=== PATIENT | female | born 1950 | race Caucasian/White ===

== ENCOUNTER 2023-06-09 09:55 | Inpatient (IN) | payer MEDICARE ==
--- NOTE | 2023-06-09 10:09 | ERPHSYRPT ---
- History of Present Illness Time Seen by Provider: 06/09/23 10:09 Source: patient, family Exam Limitations: clinical condition Physician History: This is a 73-year-old white female patient who lives with her son and her [id number] brought to the emergency department by her [id number] who also provided independent, additional medical history. In the last month the patient has had increased confusion. In the last 2 days her symptoms are even worse with difficulty answering questions and following commands. She is also noted to have urinary incontinence at home. Patient's daughter states that there is been no shortness of breath and no cough. Today, the patient is awake and alert but confused. She knows who she is but she does not know the time of day or her location. Patient denies pain. Patient continues to smoke cigarettes. Timing/Duration: worse ( the last month), other (Worsening symptoms over) Character of Deficits: other (Increased confusion) Baseline/Normal Cognition: alert but confused Current Cognition: alert but confused Baseline Gait: unable to walk (Transportation by wheelchair) Associated Symptoms: confusion Allergies/Adverse Reactions: No Known Drug Allergies Allergy (Verified 06/09/23 10:28) Home Medications: Alendronate Sodium 70 mg [Fosamax 70 MG] 1 tab PO WEEKLY 06/09/23 [History] Amlodipine Besylate 5 mg [Norvasc 5 mg] 10 mg PO DAILY 06/09/23 [History] Aspirin EC 81 mg [Ecotrin 81 mg] 1 tab PO DAILY 06/09/23 [History] Calcium Carbonate [Tums] 500 mg PO BID 06/09/23 [History] Celecoxib 100 mg [celeBREX 100 MG] 200 mg PO BID 06/09/23 [History] Cetirizine HCl [Zyrtec] 1 tab PO DAILY 06/09/23 [History] Cholecalciferol (Vitamin D3) [Vitamin D3] 1 cap PO DAILY 06/09/23 [History] Cyanocobalamin (Vitamin B-12) [Vitamin B12] 1 tab PO WEEKLY 06/09/23 [History] Enalapril Maleate 10 mg [Vasotec 10 MG] 20 mg PO BID 06/09/23 [History] Ferrous Sulfate 1 tab PO DAILY 06/09/23 [History] Melatonin 1 tab PO HS 06/09/23 [History] Multivit-Min/Iron/Folic/Lutein [Centrum Silver Women Tablet] 1 tab PO DAILY 06/09/23 [History] Thiamine HCl 100 mg [Vitamin B-1 100 mg] 1 tab PO DAILY 06/09/23 [History] Travel Risk - International Travel Have you traveled outside of the country in past 3 weeks: No - Coronavirus Screening Are you exhibiting any of the following symptoms?: No Close contact with a COVID-19 positive Pt in past 14-21 Days: No - Review of Systems Constitutional: Weakness Eyes: No Symptoms Ears, Nose, & Throat: No Symptoms Respiratory: No Symptoms Cardiac: No Symptoms Abdominal/Gastrointestinal: No Symptoms Genitourinary Symptoms: Incontinence Musculoskeletal: No Symptoms Skin: No Symptoms Neurological: Other (Increased confusion) Psychological: No Symptoms Endocrine: No Symptoms Hematologic/Lymphatic: No Symptoms Immunological/Allergic: No Symptoms All Other Systems: Reviewed and Negative - Past Medical History Neurological History: No Pertinent History Cardiac History: Hypertension Respiratory History: No Pertinent History Endocrine Medical History: No Pertinent History Musculoskeletal History: Fractures - Nursing Vital Signs Nursing Vital Signs: Initial Vital Signs Pulse Rate 60 06/09/23 10:28 Respiratory Rate 18 06/09/23 10:28 Blood Pressure 146/69 06/09/23 10:28 O2 Sat by Pulse Oximetry 96 06/09/23 10:28 Pain Scale Pain Intensity 0 - [place] Coma Scale Best Eye Response (Lg): (4) open spontaneously Best Verbal Response (Lg): (4) confused conversation Best Motor Response ([place]): (5) localizes to pain Lg Total: 13 - Physical Exam General Appearance: no apparent distress, alert, thin Eye Exam: bilateral eye: normal inspection, PERRL, EOMI Ears, Nose, Throat Exam: dry mucous membranes Neck Exam: normal inspection, non-tender, supple, full range of motion Respiratory: normal breath sounds, lungs clear, No chest tenderness, No respiratory distress Cardiovascular: regular rate/rhythm, normal heart sounds, normal peripheral pulses Gastrointestinal: soft, normal bowel sounds, No tenderness Pelvic Exam: not done Rectal Exam: not done Back Exam: normal inspection, normal range of motion, No CVA tenderness, No vertebral tenderness Extremity Exam: normal inspection, normal range of motion, pelvis stable Mental Status: alert, disoriented to place, disoriented to time gauge controller Exam: normal hearing, normal speech, PERRL, tongue midline Skin Exam: normal color, warm, dry SpO2 Interpretation: normal O2 Delivery: Room Air - Course Nursing assessment & vital signs reviewed: Yes Ordered Tests: Active Orders 24 hr Category Date Time Status IV Insertion STAT Care 06/09/23 10:40 Active IV Insertion-2nd Peripheral STAT Care 06/09/23 12:09 Active Telemetry q4h Care 06/09/23 11:55 Active HEAD WITHOUT CONTRAST [CT] Stat Exams 06/09/23 10:42 Completed CBC W DIFF Stat Lab 06/09/23 10:57 Completed CMP Stat Lab 06/09/23 10:57 Completed CULTURE,URINE Stat Lab 06/09/23 11:24 Received MAG [MAGNESIUM] Stat Lab 06/09/23 12:36 Ordered UA W/RFX UR CULTURE Stat Lab 06/09/23 11:08 Completed Transfer Order Routine Transfer 06/09/23 Ordered Medication Summary Generic Name Dose Route Start Last Admin Trade Name Freq PRN Reason Stop Dose Admin Sodium Chloride 1,000 mls @ 100 mls/hr 06/09/23 10:45 06/09/23 11:16 Sodium Chloride 0.9% 1000 Ml IV 07/09/23 10:44 100 mls/hr .Q10H RANDAL Administration Potassium Chloride 20 meq in 100 mls @ 50 mls/hr 06/09/23 11:55 06/09/23 12:04 Potassium Chloride 20 Meq In Water 100ml IV 06/09/23 13:54 50 mls/hr STAT ONE Administration Discontinued Medications Generic Name Dose Route Start Last Admin Trade Name Freq PRN Reason Stop Dose Admin Ceftriaxone Sodium/Dextrose 1 g in 50 mls @ 100 mls/hr 06/09/23 12:03 Rocephin 1 Gm-D5w 50 Ml Bag IV 06/09/23 12:32 STAT STA Potassium Chloride Confirm 06/09/23 12:04 Potassium Chloride 20 Meq In Water 100ml Administered 06/09/23 12:05 Dose 100 mls @ ud IV .STK-MED ONE Potassium Chloride 40 meq 06/09/23 11:54 06/09/23 12:04 Potassium Chloride Tab 10 Meq Tab PO 06/09/23 11:55 40 meq STAT ONE Administration Potassium Chloride Confirm 06/09/23 12:04 Potassium Chloride Tab 10 Meq Tab Administered 06/09/23 12:05 Dose 40 meq PO .STK-MED ONE Lab/Rad Data: Laboratory Result Diagrams 06/09/23 10:57 06/09/23 10:57 Laboratory Results 06/09/23 06/09/23 06/09/23 Range/Units 11:09 11:08 10:57 WBC (4.0-10.5) x10^3/uL RBC (4.1-5.4) x10^6/uL Hgb (12.0-16.0) g/dL Hct (35-47) % MCV (78-100) fL MCH (26-32) pg MCHC (32-36) g/dL RDW (11.5-14.0) % Plt Count (150-450) x10^3/uL MPV (7.5-11.0) fL Gran % (36.0-66.0) % Immature Gran % (Auto) (0.00-0.4) % Nucleat RBC Rel Count (0.00-0.1) % Eos # (Auto) (0-0.5) x10^3/uL Immature Gran # (Auto) (0.00-0.03) x10^3u/L Absolute Lymphs (auto) (1.0-4.6) x10^3/uL Absolute Monos (auto) (0.0-1.3) x10^3/uL Absolute Nucleated RBC (0.00-0.01) x10^3u/L Lymphocytes % (24.0-44.0) % Monocytes % (0.0-12.0) % Eosinophils % (0.00-5.0) % Basophils % (0.0-0.4) % Absolute Granulocytes (1.4-6.9) x10^3/uL Basophils # (0-0.4) x10^3/uL Sodium 133 L (137-145) mmol/L Potassium 2.6 L* (3.5-5.1) mmol/L Chloride 97 L (98-107) mmol/L Carbon Dioxide 33 H (22-30) mmol/L Anion Gap 6.2 (5-15) MEQ/L BUN 20 H (7-17) mg/dL Creatinine 1.35 H (0.52-1.04) mg/dL Estimated GFR 41.2 ML/MIN Glucose 106 (74-106) mg/dL Calcium 13.7 H* (8.4-10.2) mg/dL Total Bilirubin 0.60 (0.2-1.3) mg/dL AST 28 (14-36) U/L ALT 14 (0-35) U/L Alkaline Phosphatase 35 L (38-126) U/L Serum Total Protein 6.2 L (6.3-8.2) g/dL Albumin 3.2 L (3.5-5.0) g/dL Urine Color Yellow (Yellow) Urine Appearance Turbid A (Clear) Urine pH 6.5 (4.6-8.0) Ur Specific [place] 1.015 (1.005-1.030) Urine Protein 30 (Negative) Urine Glucose (UA) Negative (Negative) mg/dL Urine Ketones Trace A (Negative) Urine Blood Trace (Negative) Urine Nitrite Positive A (Negative) Urine Bilirubin Negative (Negative) Urine Urobilinogen 0.2 (0.2) mg/dL Ur Leukocyte Esterase Large A (Negative) U Hyaline Cast (Auto) 11-20 (0-2) /LPF Urine Microscopic RBC 0-2 (0-5) /HPF Urine Microscopic WBC >100 A (0-5) /HPF Ur Epithelial Cells Rare (None Seen) /HPF Urine Bacteria Many A (None Seen) /HPF Urine Culture Reflexed ORDERED SEPARATELY (NO) Influenza Type A Ag NEGATIVE (NEGATIVE) Influenza Type B Ag NEGATIVE (NEGATIVE) RSV (PCR) NEGATIVE (NEGATIVE) SARS-CoV-2 (PCR) NEGATIVE (NEGATIVE) 06/09/23 Range/Units 10:57 WBC 9.5 (4.0-10.5) x10^3/uL RBC 3.65 L (4.1-5.4) x10^6/uL Hgb 11.1 L (12.0-16.0) g/dL Hct 33.6 L (35-47) % MCV 92.1 (78-100) fL MCH 30.4 (26-32) pg MCHC 33.0 (32-36) g/dL RDW 13.5 (11.5-14.0) % Plt Count 243 (150-450) x10^3/uL MPV 11.4 H (7.5-11.0) fL Gran % 68.9 H (36.0-66.0) % Immature Gran % (Auto) 0.2 (0.00-0.4) % Nucleat RBC Rel Count 0.0 (0.00-0.1) % Eos # (Auto) 0.25 (0-0.5) x10^3/uL Immature Gran # (Auto) 0.02 (0.00-0.03) x10^3u/L Absolute Lymphs (auto) 1.90 (1.0-4.6) x10^3/uL Absolute Monos (auto) 0.75 (0.0-1.3) x10^3/uL Absolute Nucleated RBC 0.00 (0.00-0.01) x10^3u/L Lymphocytes % 20.1 L (24.0-44.0) % Monocytes % 7.9 (0.0-12.0) % Eosinophils % 2.6 (0.00-5.0) % Basophils % 0.3 (0.0-0.4) % Absolute Granulocytes 6.52 (1.4-6.9) x10^3/uL Basophils # 0.03 (0-0.4) x10^3/uL Sodium (137-145) mmol/L Potassium (3.5-5.1) mmol/L Chloride (98-107) mmol/L Carbon Dioxide (22-30) mmol/L Anion Gap (5-15) MEQ/L BUN (7-17) mg/dL Creatinine (0.52-1.04) mg/dL Estimated GFR ML/MIN Glucose (74-106) mg/dL Calcium (8.4-10.2) mg/dL Total Bilirubin (0.2-1.3) mg/dL AST (14-36) U/L ALT (0-35) U/L Alkaline Phosphatase (38-126) U/L Serum Total Protein (6.3-8.2) g/dL Albumin (3.5-5.0) g/dL Urine Color (Yellow) Urine Appearance (Clear) Urine pH (4.6-8.0) Ur Specific [place] (1.005-1.030) Urine Protein (Negative) Urine Glucose (UA) (Negative) mg/dL Urine Ketones (Negative) Urine Blood (Negative) Urine Nitrite (Negative) Urine Bilirubin (Negative) Urine Urobilinogen (0.2) mg/dL Ur Leukocyte Esterase (Negative) U Hyaline Cast (Auto) (0-2) /LPF Urine Microscopic RBC (0-5) /HPF Urine Microscopic WBC (0-5) /HPF Ur Epithelial Cells (None Seen) /HPF Urine Bacteria (None Seen) /HPF Urine Culture Reflexed (NO) Influenza Type A Ag (NEGATIVE) Influenza Type B Ag (NEGATIVE) RSV (PCR) (NEGATIVE) SARS-CoV-2 (PCR) (NEGATIVE) - Progress Progress: unchanged, re-examined Progress Note: 06/09/23 11:19 This patient's medical condition is 1 of moderate complexity. The level complex in the work-up performed based on review of the patient's past medical history, review the patient's medication list, review of the patient's drug allergy list, history of present illness and physical findings on examination. Work-up in this patient includes placement of intravenous line, infusion normal saline solution, urinalysis, CT scan of the head, CBC, CMP, and viral swabs. 06/09/23 12:19 I reviewed and interpreted the patient's laboratory data. Patient does have a potassium of 2.6. She has an elevated calcium and a urinary tract infection. CT scan of the head without contrast was interpreted by the radiologist and I reviewed the interpretation. CT scan without contrast shows a nonacute senile brain with remote lacunar infarct of the left caudate. 06/09/23 12:[address] Locke our telehospitalist who is on-call at this time. I reviewed the above-stated history, physical findings, laboratory results and CT scan of the head findings with him. We will place the patient in observation for hydration, correction of hypercalcemia and hypokalemia as well as treat her urinary tract infection. We will also obtain discharge planning for possible [place] [facility] placement. Discussed with : Other (Dr.olan Noble) Counseled pt/family regarding: lab results, diagnosis, rad results Medical Desision Making - Independent Historian Additional History obtained from: Family (Daughter) - Discussion of managment Care discussed with:: hospitalist Reviewed:: Test results, Need for additional workup Agreed on:: place in obs - Diagnostic Testing Diagnostic test were ordered, analyzed, and reviewed by me: Yes Radiological Interpretation: Reviewed by me, Teleradiologist Report - Risk of complications The pt has a high risk of morbidity or mortality based on: Decision regarding hospitilization or escalation of hosp level of care - Departure Departure Disposition: Observation Clinical Impression: Confusion, Hypercalcemia, Hypokalemia, Urinary tract infection Condition: Stable Critical Care Time: No Referrals: HAILEY BARAHONA, [employer]IE[employer] CH[employer] OFFICER [Primary Care Provider] - Follow up/PCP as directed
[2023-06-09] MEDS ORDERED: Sodium Chloride 0.9% 1000 ML 1,000 ML IV SCH ×2 (10:45→13:06)
[2023-06-09] MEDS ORDERED: Sodium Chloride 0.9% 1000 ML 1,000 ML ONE (11:15)
[2023-06-09 11:29] LABS: Absolute Neutrophil Ct (ANC) 6.52 x10^3/uL (1.4-6.9); BASOPHIL % 0.3 % (0.0-0.4); Basophil (Absolute #) 0.03 x10^3/uL (0-0.4); Eosinophil % 2.6 % (0.00-5.0); Eosinophil (Absolute #) 0.25 x10^3/uL (0-0.5); Hematocrit 33.6 % (35-47); Hemoglobin 11.1 g/dL (12.0-16.0); IMMATURE GRAN # 0.02 x10^3u/L (0.00-0.03); IMMATURE GRAN % 0.2 % (0.00-0.4); Lymphocytes % 20.1 % (24.0-44.0); Mean Cell Volume 92.1 fL (78-100); Mean Corpuscular Hemoglobin 30.4 pg (26-32); Mean Platelet Volume 11.4 fL (7.5-11.0); Monocyte (Absolute #) 0.75 x10^3/uL (0.0-1.3); Monocytes % 7.9 % (0.0-12.0); Neutrophil % 68.9 % (36.0-66.0); Platelet Count 243 x10^3/uL (150-450); Red Blood Count 3.65 x10^6/uL (4.1-5.4); Red Cell Distribution Width 13.5 % (11.5-14.0); White Blood Count 9.5 x10^3/uL (4.0-10.5)
--- NOTE | 2023-06-09 11:37 | XRAY ---
Indication: Altered mental status. Confusion. UTI. Multiple contiguous axial images obtained through the head without contrast. Comparison: None Age-appropriate global atrophy, mild periventricular degenerative micro-ischemia, and remote lacunar infarct left caudate head. No acute intracranial hemorrhage, abnormal extra-axial fluid collection, or mass effect. Fourth ventricle is midline without hydrocephalus. Visualized paranasal sinuses and mastoid air cells are clear. Impression: Nonacute senile brain with remote lacunar infarct left caudate.
[2023-06-09 11:47] LABS: ALBUMIN 3.2 g/dL (3.5-5.0); ANION GAP 6.2 MEQ/L (5-15); BILIRUBIN,TOTAL 0.6 mg/dL (0.2-1.3); Creatinine 1 1.35 mg/dL (0.52-1.04); EST GLOMERULAR FILTRATION RATE 41.2 ML/MIN; Total Protein 6.2 g/dL (6.3-8.2)
[2023-06-09 11:51] LABS: Appearance Turbid (Clear); Bacteria Many /HPF (None Seen); Bilirubin Negative (Negative); Blood Trace (Negative); Epithelial Cells Rare /HPF (None Seen); Glucose, Urine Negative (Negative); Ketones Trace (Negative); Leukocyte Esterase Large (Negative); Nitrite Positive (Negative); Ph 6.5 (4.6-8.0); Protein,Urine Dip 30 (Negative); RBC 0-2 /HPF (0-5); Specific Gravity 1.015 (1.005-1.030); Urobilinogen 0.2 mg/dL (0.2); WBC >100 /HPF (0-5)
[2023-06-09 11:52] LABS: ADD URINE CULTURE? ORDERED SEPARATELY (NO)
[2023-06-09 11:54] LABS: Calcium 13.7 mg/dL (8.4-10.2); Potassium 2.6 mmol/L (3.5-5.1)
[2023-06-09] MEDS ORDERED: Klor Con PO ONE ×3 (11:54→21:00)
[2023-06-09] MEDS ORDERED: POTASSIUM CHLORIDE 20 mEq IN WATER 100ML 20 MEQ/100 ML BAG IV ONE (11:55)
[2023-06-09] MEDS ORDERED: ROCEPHIN 1 Gm-D5w 50 ml Bag** 1 G/50 ML IVPB IV STA (12:03)
[2023-06-09] MEDS ORDERED: POTASSIUM CHLORIDE 20 mEq IN WATER 100ML 100 ML IV ONE (12:04)
[2023-06-09 12:05] LABS: INFLUENZA A NEGATIVE (NEGATIVE); INFLUENZA B NEGATIVE (NEGATIVE); RESPIRATORY SYNCTIAL VIRUS NEGATIVE (NEGATIVE); SARS-CoV-2 Xpert Express NEGATIVE (NEGATIVE)
[2023-06-09] MEDS ORDERED: ROCEPHIN 1 Gm-D5w 50 ml Bag** 1 G/50 ML IVPB IV ONE (12:40)
[2023-06-09] MEDS ORDERED: Zofran 4 MG/2 ML VIAL IV PRN (13:06)
[2023-06-09] MEDS ORDERED: TYLENOL 325 MG PO PRN (13:06)
--- NOTE | 2023-06-09 14:23 | PCM.HP ---
History of Present Illness - Chief Complaint Chief Complaint: Confusion, hypokalemia, UTI Date: 06/09/23 (1300) History of Present Illness: is a 73 year old female who is admitted with confusion. She has underlying dementia but the past few days has been unable to follow commands and is increasingly confused. She is unable to answer questions and history is obtained from the family at bedside. She has had some constipation and some incontinence of urine. Oral intake has been poor. No fever. No cough or dyspnea. No chest pain. No abdominal pain. No nausea or vomiting. She is wheelchair bound due to prior hip fracture on left and right knee pain. PMH includes dementia and hypertension. - Review of Systems Constitutional: No Symptoms Eyes: No Symptoms Ears, Nose, & Throat: No Symptoms Respiratory: No Symptoms Abdominal/Gastrointestinal: No Symptoms, Constipation Genitourinary Symptoms: Incontinence Skin: No Symptoms Neurological: No Symptoms Psychological: No Symptoms Endocrine: No Symptoms Hematologic/Lymphatic: No Symptoms Immunological/Allergic: No Symptoms All Other Systems: Unable due to condition Medications & Allergies Home Medications: Home Medication List Alendronate Sodium 70 mg [Fosamax 70 MG] 1 tab PO WEEKLY 06/09/23 [History Confirmed 06/09/23] Amlodipine Besylate 5 mg [Norvasc 5 mg] 10 mg PO DAILY 06/09/23 [History Confirmed 06/09/23] Aspirin EC 81 mg [Ecotrin 81 mg] 1 tab PO DAILY 06/09/23 [History Confirmed 06/09/23] Calcium Carbonate [Tums] 500 mg PO BID 06/09/23 [History Confirmed 06/09/23] Celecoxib 100 mg [celeBREX 100 MG] 200 mg PO BID 06/09/23 [History Confirmed 06/09/23] Cetirizine HCl [Zyrtec] 1 tab PO DAILY 06/09/23 [History Confirmed 06/09/23] Cholecalciferol (Vitamin D3) [Vitamin D3] 1 cap PO DAILY 06/09/23 [History Confirmed 06/09/23] Cyanocobalamin (Vitamin B-12) [Vitamin B12] 1 tab PO WEEKLY 06/09/23 [History Confirmed 06/09/23] Enalapril Maleate 10 mg [Vasotec 10 MG] 20 mg PO BID 06/09/23 [History Confirmed 06/09/23] Ferrous Sulfate 1 tab PO DAILY 06/09/23 [History Confirmed 06/09/23] Melatonin 1 tab PO HS 06/09/23 [History Confirmed 06/09/23] Multivit-Min/Iron/Folic/Lutein [Centrum Silver Women Tablet] 1 tab PO DAILY 06/09/23 [History Confirmed 06/09/23] Thiamine HCl 100 mg [Vitamin B-1 100 mg] 1 tab PO DAILY 06/09/23 [History Confirmed 06/09/23] Allergies/Adverse Reactions: Allergies Allergy/AdvReac Type Severity Reaction Status Date / Time No Known Drug Allergies Allergy Verified 06/09/23 10:28 - Past Medical History Past Medical History: Yes Neurological History: Dementia ENT History: No Pertinent History Cardiac History: Hypertension Respiratory History: No Pertinent History Endocrine Medical History: No Pertinent History Musculoskelatal History: Fractures, Osteoporosis GI Medical History: No Pertinent History History: No Pertinent History Pyscho-Social History: No Pertinent History Reproductive Disorders: No Pertinent History Comment: Anemia, insomnia, allergies - Female History Are you now?: No - Past Surgical History Past Surgical History: Yes Neuro Surgical History: No Pertinent History Cardiac History: No Pertinent History Respiratory Surgery: No Pertinent History GI Surgical History: Cholecystectomy Genitourinary Surgical Hx: No Pertinent History Musculskeletal Surgical Hx: Joint Replacement, Orthopedic Surgery Female Surgical History: Hysterectomy Other Surgical History: hip and femur - Social History Smoking Status: Current every day smoker How long have you smoked: "years" Exposure to second hand smoke: No Alcohol: None Drug Use: none - Physical Exam Vital Signs: Vital Signs - 24 hr Temp Pulse Resp BP BP Pulse Ox 06/09/23 13:08 98.0 F 60 18 171/72 95 06/09/23 10:29 97.8 F 66 18 146/69 97 06/09/23 10:28 60 18 146/69 96 General Appearance: mild distress Neurologic Exam: confusion Eye Exam: PERRL/EOMI, eyes nml inspection Ears, Nose, Throat Exam: normal ENT inspection Neck Exam: normal inspection Respiratory Exam: normal breath sounds Cardiovascular Exam: regular rate/rhythm, normal heart sounds, normal peripheral pulses Gastrointestinal/Abdomen Exam: soft, normal bowel sounds Pelvic Exam: not done Rectal Exam: deferred Back Exam: normal inspection Extremity Exam: normal inspection Skin Exam: normal color Results - Labs Lab/Micro Results: Lab Results-Last 24 Hours 06/09/23 06/09/23 06/09/23 Range/Units 10:57 10:57 10:57 WBC 9.5 (4.0-10.5) x10^3/uL RBC 3.65 L (4.1-5.4) x10^6/uL Hgb 11.1 L (12.0-16.0) g/dL Hct 33.6 L (35-47) % MCV 92.1 (78-100) fL MCH 30.4 (26-32) pg MCHC 33.0 (32-36) g/dL RDW 13.5 (11.5-14.0) % Plt Count 243 (150-450) x10^3/uL MPV 11.4 H (7.5-11.0) fL Gran % 68.9 H (36.0-66.0) % Immature Gran % (Auto) 0.2 (0.00-0.4) % Nucleat RBC Rel Count 0.0 (0.00-0.1) % Eos # (Auto) 0.25 (0-0.5) x10^3/uL Immature Gran # (Auto) 0.02 (0.00-0.03) x10^3u/L Absolute Lymphs (auto) 1.90 (1.0-4.6) x10^3/uL Absolute Monos (auto) 0.75 (0.0-1.3) x10^3/uL Absolute Nucleated RBC 0.00 (0.00-0.01) x10^3u/L Lymphocytes % 20.1 L (24.0-44.0) % Monocytes % 7.9 (0.0-12.0) % Eosinophils % 2.6 (0.00-5.0) % Basophils % 0.3 (0.0-0.4) % Absolute Granulocytes 6.52 (1.4-6.9) x10^3/uL Basophils # 0.03 (0-0.4) x10^3/uL Sodium 133 L (137-145) mmol/L Potassium 2.6 L* (3.5-5.1) mmol/L Chloride 97 L (98-107) mmol/L Carbon Dioxide 33 H (22-30) mmol/L Anion Gap 6.2 (5-15) MEQ/L BUN 20 H (7-17) mg/dL Creatinine 1.35 H (0.52-1.04) mg/dL Estimated GFR 41.2 ML/MIN Glucose 106 (74-106) mg/dL Calcium 13.7 H* (8.4-10.2) mg/dL Magnesium 1.8 (1.6-2.3) mg/dL Total Bilirubin 0.60 (0.2-1.3) mg/dL AST 28 (14-36) U/L ALT 14 (0-35) U/L Alkaline Phosphatase 35 L (38-126) U/L Serum Total Protein 6.2 L (6.3-8.2) g/dL Albumin 3.2 L (3.5-5.0) g/dL Urine Color (Yellow) Urine Appearance (Clear) Urine pH (4.6-8.0) Ur Specific [place] (1.005-1.030) Urine Protein (Negative) Urine Glucose (UA) (Negative) mg/dL Urine Ketones (Negative) Urine Blood (Negative) Urine Nitrite (Negative) Urine Bilirubin (Negative) Urine Urobilinogen (0.2) mg/dL Ur Leukocyte Esterase (Negative) U Hyaline Cast (Auto) (0-2) /LPF Urine Microscopic RBC (0-5) /HPF Urine Microscopic WBC (0-5) /HPF Ur Epithelial Cells (None Seen) /HPF Urine Bacteria (None Seen) /HPF Urine Culture Reflexed (NO) Influenza Type A Ag (NEGATIVE) Influenza Type B Ag (NEGATIVE) RSV (PCR) (NEGATIVE) SARS-CoV-2 (PCR) (NEGATIVE) 06/09/23 06/09/23 Range/Units 11:08 11:09 WBC (4.0-10.5) x10^3/uL RBC (4.1-5.4) x10^6/uL Hgb (12.0-16.0) g/dL Hct (35-47) % MCV (78-100) fL MCH (26-32) pg MCHC (32-36) g/dL RDW (11.5-14.0) % Plt Count (150-450) x10^3/uL MPV (7.5-11.0) fL Gran % (36.0-66.0) % Immature Gran % (Auto) (0.00-0.4) % Nucleat RBC Rel Count (0.00-0.1) % Eos # (Auto) (0-0.5) x10^3/uL Immature Gran # (Auto) (0.00-0.03) x10^3u/L Absolute Lymphs (auto) (1.0-4.6) x10^3/uL Absolute Monos (auto) (0.0-1.3) x10^3/uL Absolute Nucleated RBC (0.00-0.01) x10^3u/L Lymphocytes % (24.0-44.0) % Monocytes % (0.0-12.0) % Eosinophils % (0.00-5.0) % Basophils % (0.0-0.4) % Absolute Granulocytes (1.4-6.9) x10^3/uL Basophils # (0-0.4) x10^3/uL Sodium (137-145) mmol/L Potassium (3.5-5.1) mmol/L Chloride (98-107) mmol/L Carbon Dioxide (22-30) mmol/L Anion Gap (5-15) MEQ/L BUN (7-17) mg/dL Creatinine (0.52-1.04) mg/dL Estimated GFR ML/MIN Glucose (74-106) mg/dL Calcium (8.4-10.2) mg/dL Magnesium (1.6-2.3) mg/dL Total Bilirubin (0.2-1.3) mg/dL AST (14-36) U/L ALT (0-35) U/L Alkaline Phosphatase (38-126) U/L Serum Total Protein (6.3-8.2) g/dL Albumin (3.5-5.0) g/dL Urine Color Yellow (Yellow) Urine Appearance Turbid A (Clear) Urine pH 6.5 (4.6-8.0) Ur Specific [place] 1.015 (1.005-1.030) Urine Protein 30 (Negative) Urine Glucose (UA) Negative (Negative) mg/dL Urine Ketones Trace A (Negative) Urine Blood Trace (Negative) Urine Nitrite Positive A (Negative) Urine Bilirubin Negative (Negative) Urine Urobilinogen 0.2 (0.2) mg/dL Ur Leukocyte Esterase Large A (Negative) U Hyaline Cast (Auto) 11-20 (0-2) /LPF Urine Microscopic RBC 0-2 (0-5) /HPF Urine Microscopic WBC >100 A (0-5) /HPF Ur Epithelial Cells Rare (None Seen) /HPF Urine Bacteria Many A (None Seen) /HPF Urine Culture Reflexed ORDERED SEPARATELY (NO) Influenza Type A Ag NEGATIVE (NEGATIVE) Influenza Type B Ag NEGATIVE (NEGATIVE) RSV (PCR) NEGATIVE (NEGATIVE) SARS-CoV-2 (PCR) NEGATIVE (NEGATIVE) - Radiology Impressions Radiology Exams & Impressions: Radiology Procedures Category Date Time Status HEAD WITHOUT CONTRAST [CT] Stat Exams 06/09/23 10:42 Completed - Other Procedures and Tests Respiratory Therapy 06/09/23 13:06 EKG REPEAT IN AM Assessment/Plan (1) Acute metabolic encephalopathy Current Visit: Yes Status: Acute Assessment & Plan: Confusion may be due to UTI or hypercalcemia Will culture urine and begin antibiotics. Will treat hypercalcemia CT of head negative Patient has underlying dementia but mental status much worse past few days. Code(s): G93.41 - METABOLIC ENCEPHALOPATHY (2) Dementia Current Visit: Yes Status: Chronic Assessment & Plan: Past history of dementia but now acute encephlopathy Family is planning NH placement Code(s): F03.90 - UNSP DEMENTIA, UNSP SEVERITY, WITHOUT BEH/PSYCH/MOOD/ANX (3) Hypertension Current Visit: Yes Status: Chronic Qualifiers: Hypertension type: primary hypertension Qualified Code(s): I10 - Essential (primary) hypertension Assessment & Plan: Continue home meds Code(s): I10 - ESSENTIAL (PRIMARY) HYPERTENSION (4) Hyponatremia Current Visit: Yes Status: Acute Assessment & Plan: Nt=[id number]. Recheck in am Code(s): E87.1 - HYPO-OSMOLALITY AND HYPONATREMIA (5) Acute kidney injury Current Visit: Yes Status: Acute Assessment & Plan: Patient has had poor oral intake. She hasn't been drinking for fear of incontinence. Cr is mildly elevated. Plan IV fluids. Code(s): N17.9 - ACUTE KIDNEY FAILURE, UNSPECIFIED (6) Hypercalcemia Current Visit: Yes Status: Acute Assessment & Plan: Patient has been on oral calcium. Will give IV fluids and IV steroids Check PTH. Ca=13.7. At this level there is concern for underlying malignancy If calcium does not respond to treatment, she may need further investigation. Code(s): E83.52 - HYPERCALCEMIA (7) Hypokalemia Current Visit: Yes Status: Acute Assessment & Plan: Replacement ordered Code(s): E87.6 - HYPOKALEMIA (8) Urinary tract infection Current Visit: Yes Status: Acute Qualifiers: Urinary tract infection type: acute cystitis Hematuria presence: without hematuria Qualified Code(s): N30.00 - Acute cystitis without hematuria Assessment & Plan: Plan urine culture. Treat with IV Rocephin for now. Code(s): N39.0 - URINARY TRACT INFECTION, SITE NOT SPECIFIED Telemedicine Encounter - Telemedicine Encounter Telemedicine Encounter: The entirety of this encounter was performed via Telemedicine after consent obtained. Discussed with ER provider. Labs and imaging reviewed 70 minutes spent on the care of this patient Binu Locke MD [facility]
[2023-06-09] MEDS ORDERED: Docusate Sodium 100 MG PO PRN (14:30)
[2023-06-09] MEDS: NICODERM CQ 14 MG TOP SCH (15:48)
[2023-06-09] MEDS: Sodium Chloride 0.9% 1000 ML 1,000 ML IV SCH ×2 (15:49→22:14)
[2023-06-09] MEDS: solu-MEDROL 20 MG, Sterile H2O 10 ml 1 ML IV SCH ×2 (21:03)
[2023-06-10] MEDS ORDERED: Klor Con PO ONE (00:01)
[2023-06-10 05:10] LABS: Absolute Neutrophil Ct (ANC) 6.05 x10^3/uL (1.4-6.9); BASOPHIL % 0.1 % (0.0-0.4); Basophil (Absolute #) 0.01 x10^3/uL (0-0.4); Eosinophil (Absolute #) 0 x10^3/uL (0-0.5); Hematocrit 32.9 % (35-47); Hemoglobin 11.1 g/dL (12.0-16.0); IMMATURE GRAN # 0.02 x10^3u/L (0.00-0.03); IMMATURE GRAN % 0.3 % (0.00-0.4); Lymphocyte (Absolute #) 0.84 x10^3/uL (1.0-4.6); Lymphocytes % 11.9 % (24.0-44.0); Mean Cell Volume 90.6 fL (78-100); Mean Corpuscular Hemoglobin 30.6 pg (26-32); Mean Corpuscular Hgb Concent. 33.7 g/dL (32-36); Mean Platelet Volume 10.9 fL (7.5-11.0); Monocyte (Absolute #) 0.11 x10^3/uL (0.0-1.3); Monocytes % 1.6 % (0.0-12.0); Neutrophil % 86.1 % (36.0-66.0); Platelet Count 247 x10^3/uL (150-450); Red Blood Count 3.63 x10^6/uL (4.1-5.4); Red Cell Distribution Width 13.2 % (11.5-14.0)
[2023-06-10 05:28] LABS: ANION GAP 6.9 MEQ/L (5-15); BILIRUBIN,TOTAL 0.4 mg/dL (0.2-1.3); Creatinine 1 1.27 mg/dL (0.52-1.04); EST GLOMERULAR FILTRATION RATE 44.4 ML/MIN; MAGNESIUM 1.4 mg/dL (1.6-2.3); Potassium 4.1 mmol/L (3.5-5.1); Total Protein 5.8 g/dL (6.3-8.2)
[2023-06-10 05:45] LABS: Calcium 12.4 mg/dL (8.4-10.2)
[2023-06-10] MEDS ORDERED: MELATONIN PO PRN (09:27)
[2023-06-10] MEDS: ENOXAPARIN SODIUM SQ SCH (09:42)
[2023-06-10] MEDS: ECOTRIN 81 MG PO SCH (09:42)
[2023-06-10] MEDS: solu-MEDROL 20 MG, Sterile H2O 10 ml 1 ML IV SCH ×2 (09:43)
[2023-06-10] MEDS: VITAMIN B-1 100 MG PO SCH (09:43)
[2023-06-10] MEDS: NORVASC 5 MG PO SCH (09:43)
[2023-06-10] MEDS: Sodium Chloride 0.9% 1000 ML 1,000 ML IV SCH (09:52)
[2023-06-10] MEDS ORDERED: ROCEPHIN 1 Gm-D5w 50 ml Bag** 1 G/50 ML IVPB IV SCH (10:00)
[2023-06-10] MEDS ORDERED: Magnesium Sulfate 1 GM/2 ML VIAL IV ONE (10:15)
[2023-06-10] MEDS ORDERED: MAGNESIUM SULF 2 G/50 ML BAG 2 GM/50 ML PIGGYBACK IV ONE (11:00)
[2023-06-10] MEDS ORDERED: Geodon 20 MG INJ IM PRN (14:29)
[2023-06-10] MEDS ORDERED: Sterile H2O 10 ml IJ ONE (14:48)
[2023-06-10] MEDS: NICODERM CQ 14 MG TOP SCH (14:51)
[2023-06-10] MEDS ORDERED: KEFLEX 500 MG PO SCH ×2 (17:00→20:43)
--- NOTE | 2023-06-10 18:57 | PCM.NOTE ---
Date and Time: 06/10/231850 Subjective Assessment: Patient remains confused. She is now combative at times and pulling out her IV. No history is available from patient. Family is at bedside. - Review of Systems Musculoskeletal: No Symptoms All Other Systems: Unable due to dementia Objective Exam General Appearance: moderate distress Neurologic Exam: confusion, agitation, uncooperative Skin Exam: normal color, warm, dry Wound Assessment: Skin/Wound Assessment Wound/Incision Assessment Start: 06/09/23 13:39 Text: Status: Active Freq: Q6H Protocol: Document 06/10/23 14:00 KD (Rec: 06/10/23 15:30 KD [id number]) Co-Sign 06/10/23 14:00 JN Wound/Incision Assessment Sacrum Wound Assessment Shift Assessment Wound Stage Non Pressure Wound Drainage Amount None General Appearance Reddened Comment redness noted to sacrum, barrier ointment applied, pt weight shifted, skin blanches. no open areas noted. Wound Photo Photo Taken No Eye Exam: PERRL, EOMI Ears, Nose, Throat Exam: normal ENT inspection Neck Exam: normal inspection Lymphatic Exam: No adenopathy Respiratory Exam: normal breath sounds Cardiovascular Exam: regular rate/rhythm, normal heart sounds Gastrointestinal/Abdomen Exam: soft, normal bowel sounds, No tenderness, No mass Extremity Exam: normal inspection Back Exam: normal inspection Pelvic Exam: deferred Rectal Exam: deferred OBJECTIVE DATA Vital Signs: Vital Signs - 24 hr Temp Pulse Resp BP Pulse Ox 06/10/23 16:00 97.9 F 63 18 135/75 95 06/10/23 12:16 97.9 F 63 18 145/65 95 06/10/23 07:11 97.9 F 63 18 145/65 95 06/10/23 04:00 98.7 F 66 16 133/62 90 L 06/09/23 23:59 96.9 F 59 L 18 133/62 94 L Pain Assessment - Last Documented Pain Intensity 0 Intake and Output: Intake & Output 06/08/23 06/09/23 06/10/23 06/11/23 11:59 11:59 11:59 11:59 Intake Total 2437 240 Balance 2437 240 Weight 64 kg 62.6 kg Lab Results: Lab Results-Last 24 Hours 06/10/23 06/10/23 06/10/23 Range/Units 04:45 04:45 05:14 WBC 7.0 (4.0-10.5) x10^3/uL RBC 3.63 L (4.1-5.4) x10^6/uL Hgb 11.1 L (12.0-16.0) g/dL Hct 32.9 L (35-47) % MCV 90.6 (78-100) fL MCH 30.6 (26-32) pg MCHC 33.7 (32-36) g/dL RDW 13.2 (11.5-14.0) % Plt Count 247 (150-450) x10^3/uL MPV 10.9 (7.5-11.0) fL Gran % 86.1 H (36.0-66.0) % Immature Gran % (Auto) 0.3 (0.00-0.4) % Nucleat RBC Rel Count 0.0 (0.00-0.1) % Eos # (Auto) 0 (0-0.5) x10^3/uL Immature Gran # (Auto) 0.02 (0.00-0.03) x10^3u/L Absolute Lymphs (auto) 0.84 L (1.0-4.6) x10^3/uL Absolute Monos (auto) 0.11 (0.0-1.3) x10^3/uL Absolute Nucleated RBC 0.00 (0.00-0.01) x10^3u/L Lymphocytes % 11.9 L (24.0-44.0) % Monocytes % 1.6 (0.0-12.0) % Eosinophils % 0.0 (0.00-5.0) % Basophils % 0.1 (0.0-0.4) % Absolute Granulocytes 6.05 (1.4-6.9) x10^3/uL Basophils # 0.01 (0-0.4) x10^3/uL Ionized Calcium 1.59 H (1.12-1.32) mmol/L Sodium 133 L (137-145) mmol/L Potassium 4.1 D (3.5-5.1) mmol/L Chloride 102 (98-107) mmol/L Carbon Dioxide 28 (22-30) mmol/L Anion Gap 6.9 (5-15) MEQ/L BUN 15 (7-17) mg/dL Creatinine 1.27 H (0.52-1.04) mg/dL Estimated GFR 44.4 ML/MIN Glucose 119 H (74-106) mg/dL Calcium 12.4 H* (8.4-10.2) mg/dL Magnesium 1.4 L (1.6-2.3) mg/dL Total Bilirubin 0.40 (0.2-1.3) mg/dL AST 23 (14-36) U/L ALT 13 (0-35) U/L Alkaline Phosphatase 42 (38-126) U/L Serum Total Protein 5.8 L (6.3-8.2) g/dL Albumin 3.0 L (3.5-5.0) g/dL Radiology Exams: Radiology Procedures Category Date Time Status HEAD WITHOUT CONTRAST [CT] Stat Exams 06/09/23 10:42 Completed Multi-Disciplinary Progress Notes: Multi-Disciplinary Progress Notes 06/10/23 13:24 OT Plan of Care Note by Nikki(L#[id number])Preeti OT Eval OT Inpatient Eval and POC Start: 06/09/23 14:30 Freq: ONCE Status: Active Protocol: Created 06/09/23 14:35 DC (Rec: 06/09/23 14:35 DC [id number]) Document 06/10/23 12:37 AL (Rec: 06/10/23 12:48 AL [id number]) OT Evaluation Subjective PATIENT WAS FOUND IN BED AFTER HAVING JUST BEEN UP WITH PT FOR EVALUATION. HER SON AND DAUGHTER IN LAW WERE BOTH PRESENT AND HELPFUL IN PROVIDING HISTORY AND INFORMATION DURING OT EVAL. Prior Level of Function MS. TOURE HAS LIVED WITH HER SON AND [place]IN[place] OVER LAST FEW YEARS. THEY STATED SHE HAD TWO ORHOPEDIC SURGERIES BACK TO BACK IN 2020 AND HER COGNITION TOOK A MAJOR DECLINE AFTER THAT. SHE HAD HAD SOME IMPAIRED COGNITION PRIOR TO HER ORTHOPEDIC INJURIES WELL. SHE HAS HAD SLOW DECLINE IN OVERALL FUNCTION IN ADLS/ IADLS AT HOME TO THE POINT THAT SHE WAS INCONTINENT FOR BOWEL AND BLADDER AND NEEDING MAX ASSIST TO DEPENDENT WITH ALL BATHING, DRESSING, AND HOMEMAKING TASKS INLCUDING MEAL PREP. Equipment at Home Prior to Admission Walker,Wheelchair,Shower Chair Home Setup Gjog-Oi-Haeegi,Ramp Comment FAMILY REPORT SHE HASN'T BEEN ABLE TO TRANSFER INTO WALK-IN SHOWER FOR SEVERAL MONTHS AND HAS BEEN USING WET-WIPES TO PERFORM SPONGE BATH WHILE IN BED OR SITTING UP IN CHAIR. Date 06/10/23 Feeding Impaired Comment NEEDS ASSIST FOR SET-UP AND INITIATION/FOLLOW THROUGH D/T DEMENTIA Grooming Impaired Comment MAX ASSIST TO DEPENDENT Bathing Impaired Comment MAX ASSIST TO DEPENDENT Dressing Impaired Comment MAX ASSIST TO DEPENDENT Toileting Impaired Comment DEPENDENT IADLS (If indicated) Homemaking,etc Impaired Comment DEPENDENT Bed Mobility Impaired Comment MOD ASSIST Functional Transfers Impaired Comment SEE PT EVAL FOR SPECIFICS Range of Motion WFL Functional Strength BUE 3+/5 GROSS MMT Functional Endurance FAIR FOR 15 MIN ADL Cognition ALERT INTERMITTENTLY DURING EVAL; ORIENTED TO PERSON HOWEVER NOT TO PLACE, TIME, OR SITUATION Pain REPORTS NO PAIN CURRENTLY OT Plan Of Care Date of Evaluation 06/10/23 Treatment Diagnosis CONFUSION, JYPOKALEMIA, UTI Precaution/Orders as written EVAL ONLY Teaching Recipient Patient,Family Patient is Aware of Diagnosis and No Prognosis Patient is receptive to Plan of Care and No contributory towards OT goals Frequency/Duration EVAL ONLY Discharge Recommendations/Plan NO FURTHER OT SERVICES DEEMED MEDICALLY NECESSARY AT THIS TIME SHE DOES NOT DEMO. NEED FOR SKILLED INTERVENTION. OT DOES RECOMMEND SHE RECEIVE 24 HOUR CARE D/T DECREASED COGNITION AND INDEPENDENCE WITH ALL ADLS/IADLS. Initialized on 06/10/23 13:24 - END OF NOTE 06/10/23 12:21 Case Management Note by Kellie Balderas S/W SON, ENRRIQUE AND [id number], MONE AT LENGTH ABOUT OPTIONS AT PATIENT WA. THEY DISCUSSED SWING BED FOR 30 DAY BUT EXPLAINED THE PROGRAM FOR SKILL FOR SHORT TERM AND FOR REHAB AND THAT PATIENT WOULD NOT QUALIFY. THEY DID NOT WANT PATIENT TO GO ANYWHERE AND WERE WORKING WITH SEWAGE SCREEN OPERATOR FOR PATIENT TO OBTAIN [facility] BUT NOT UNTIL 07/01/23. OTHER OPTIONS PROVIDED. FAMILY HAS DECLINED [facility]. GENERATIONS REFERRAL COMPLETED. THEY STATED THEY WILL BE ABLE TO CARE FOR PATIENT THEMSELVES BETWEEN ENRRIQUE,CRYSTAL, AND TWILLA. ENRRIQUE IS OFF M-F AND CRYSTAL OFF S-S. TWILLA WILL SUPPLEMENT TH-FR. Initialized on 06/10/23 12:21 - END OF NOTE Assessment/Plan (1) Acute metabolic encephalopathy Current Visit: Yes Status: Acute Assessment & Plan: Confusion due to Hypercalcemia and or UTI Continue antibiotics Continue steroids. She has pulled IV out so will try to hydrate with oral liquids Ordered [place] for combativeness Code(s): G93.41 - METABOLIC ENCEPHALOPATHY (2) Dementia Current Visit: Yes Status: Chronic Assessment & Plan: Supportive care Developing some agitation, combativeness and acute delirium Code(s): F03.90 - UNSP DEMENTIA, UNSP SEVERITY, WITHOUT BEH/PSYCH/MOOD/ANX (3) Hypertension Current Visit: Yes Status: Chronic Qualifiers: Hypertension type: primary hypertension Qualified Code(s): I10 - Essential (primary) hypertension Assessment & Plan: Continue meds if she will take them Code(s): I10 - ESSENTIAL (PRIMARY) HYPERTENSION (4) Hyponatremia Current Visit: Yes Status: Acute Assessment & Plan: Na stable at 133 Code(s): E87.1 - HYPO-OSMOLALITY AND HYPONATREMIA (5) Acute kidney injury Current Visit: Yes Status: Acute Assessment & Plan: Improved slightly She pulled out IV Will try to encourage oral liquids Code(s): N17.9 - ACUTE KIDNEY FAILURE, UNSPECIFIED (6) Hypercalcemia Current Visit: Yes Status: Acute Assessment & Plan: Calcium improved from 13.7 to 12.4 Continue steroids and hydration Family reports she was taking a great deal of Tums at home in addition to Vitamin D Code(s): E83.52 - HYPERCALCEMIA (7) Hypokalemia Current Visit: Yes Status: Acute Code(s): E87.6 - HYPOKALEMIA (8) Urinary tract infection Current Visit: Yes Status: Acute Qualifiers: Urinary tract infection type: acute cystitis Hematuria presence: without hematuria Qualified Code(s): N30.00 - Acute cystitis without hematuria Assessment & Plan: Culture pending Continue IV Rocephin Code(s): N39.0 - URINARY TRACT INFECTION, SITE NOT SPECIFIED Telemedicine Encounter - Telemedicine Encounter Telemedicine Encounter: The entirety of this encounter was performed via Telemedicine after consent obtained Reviewed labs and imaging Discussed with family at bedside Complex medical decision making Quyen Sheridan MD [facility]
[2023-06-10] MEDS: Seroquel 25 MG PO SCH (20:35)
[2023-06-10] MEDS: DELTASONE 20 MG PO SCH (20:36)
[2023-06-11 05:22] LABS: ALBUMIN 2.7 g/dL (3.5-5.0); ANION GAP 5.2 MEQ/L (5-15); BILIRUBIN,TOTAL 0.3 mg/dL (0.2-1.3); Creatinine 1 1.25 mg/dL (0.52-1.04); EST GLOMERULAR FILTRATION RATE 45.2 ML/MIN; MAGNESIUM 1.7 mg/dL (1.6-2.3); Potassium 3.6 mmol/L (3.5-5.1); Total Protein 5.4 g/dL (6.3-8.2)
[2023-06-11 05:26] LABS: Hematocrit 30.4 % (35-47); Hemoglobin 10.1 g/dL (12.0-16.0); Mean Cell Volume 91.6 fL (78-100); Mean Corpuscular Hemoglobin 30.4 pg (26-32); Mean Corpuscular Hgb Concent. 33.2 g/dL (32-36); Mean Platelet Volume 11.3 fL (7.5-11.0); Platelet Count 227 x10^3/uL (150-450); Red Blood Count 3.32 x10^6/uL (4.1-5.4); Red Cell Distribution Width 13.4 % (11.5-14.0); White Blood Count 9.4 x10^3/uL (4.0-10.5)
[2023-06-11] MEDS: VITAMIN B-1 100 MG PO SCH (10:18)
[2023-06-11] MEDS: ENOXAPARIN SODIUM SQ SCH (10:18)
[2023-06-11] MEDS: ECOTRIN 81 MG PO SCH (10:18)
[2023-06-11] MEDS: BACTRIM DS TABLET PO SCH ×2 (10:18→21:30)
[2023-06-11] MEDS: DELTASONE 20 MG PO SCH ×2 (10:18→21:30)
[2023-06-11] MEDS: NORVASC 5 MG PO SCH (10:18)
--- NOTE | 2023-06-11 11:45 | XRAY ---
Indication: MCC placement. Comparison: None Portable chest slightly underinflated and rotated with scattered mediastinal/hilar/pulmonary calcified granulomas. Minimal bibasilar discoid atelectasis/scarring. Heart not enlarged. Bony thorax intact with osteopenia and mild degenerative changes. Impression: Nonacute chest with chronic features.
--- NOTE | 2023-06-11 16:54 | PCM.NOTE ---
Date and Time: 06/11/231647 Subjective Assessment: Patient is confused and combative. Family is at bedside. Calcium remains elevated. Patient is not medically safe for discharge. - Review of Systems Constitutional: No Symptoms Ears, Nose, & Throat: No Symptoms Respiratory: No Symptoms Cardiac: No Symptoms Abdominal/Gastrointestinal: No Symptoms Genitourinary Symptoms: No Symptoms Musculoskeletal: No Symptoms Skin: No Symptoms Neurological: No Symptoms Psychological: No Symptoms Endocrine: No Symptoms Hematologic/Lymphatic: No Symptoms Immunological/Allergic: No Symptoms All Other Systems: Unable due to condition, Unable due to dementia Objective Exam General Appearance: moderate distress Neurologic Exam: disoriented, confusion, agitation, uncooperative Skin Exam: normal color, warm, dry Wound Assessment: Skin/Wound Assessment Wound/Incision Assessment Start: 06/09/23 13:39 Text: Status: Active Freq: Q6H Protocol: Document 06/11/23 14:00 EK (Rec: 06/11/23 14:13 EK [id number]) Wound/Incision Assessment Sacrum Wound Assessment Shift Assessment Wound Stage Non Pressure Wound Drainage Amount None Drainage Odor None/Absent General Appearance Reddened Surrounding Tissue [place] Topical Solution/Irrigant Medicated Ointment Comment redness noted to sacrum, barrier ointment applied, pt weight shifted, skin blanches. no open areas noted-remains true Eye Exam: PERRL, EOMI Ears, Nose, Throat Exam: normal ENT inspection Neck Exam: normal inspection Lymphatic Exam: No adenopathy Respiratory Exam: normal breath sounds Cardiovascular Exam: regular rate/rhythm, normal heart sounds Gastrointestinal/Abdomen Exam: soft, normal bowel sounds, No tenderness, No mass Extremity Exam: normal inspection Back Exam: normal inspection Pelvic Exam: deferred Rectal Exam: deferred OBJECTIVE DATA Vital Signs: Vital Signs - 24 hr Temp Pulse Resp BP Pulse Ox 06/11/23 16:00 97.5 F 73 16 127/54 90 L 06/11/23 11:53 97.4 F 62 16 138/66 90 L 06/11/23 04:59 97.5 F 61 16 140/62 93 L 06/10/23 23:45 98.3 F 75 20 153/69 91 L 06/10/23 19:46 97.1 F 83 19 138/66 94 L Pain Assessment - Last Documented Pain Intensity 0 Intake and Output: Intake & Output 11/20/06/10/23 06/11/23 06/12/23 11:59 11:59 11:59 11:59 Intake Total 2437 340 120 Balance 2437 340 120 Weight 64 kg 62.6 kg Lab Results: Lab Results-Last 24 Hours 06/10/23 06/11/23 06/11/23 Range/Units 04:45 04:55 05:00 WBC 9.4 (4.0-10.5) x10^3/uL RBC 3.32 L (4.1-5.4) x10^6/uL Hgb 10.1 L (12.0-16.0) g/dL Hct 30.4 L (35-47) % MCV 91.6 (78-100) fL MCH 30.4 (26-32) pg MCHC 33.2 (32-36) g/dL RDW 13.4 (11.5-14.0) % Plt Count 227 (150-450) x10^3/uL MPV 11.3 H (7.5-11.0) fL Sodium 132 L (137-145) mmol/L Potassium 3.6 (3.5-5.1) mmol/L Chloride 103 (98-107) mmol/L Carbon Dioxide 27 (22-30) mmol/L Anion Gap 5.2 (5-15) MEQ/L BUN 15 (7-17) mg/dL Creatinine 1.25 H (0.52-1.04) mg/dL Estimated GFR 45.2 ML/MIN Glucose 130 H (74-106) mg/dL Calcium 11.0 H (8.4-10.2) mg/dL Magnesium 1.7 (1.6-2.3) mg/dL Total Bilirubin 0.30 (0.2-1.3) mg/dL AST 22 (14-36) U/L ALT 13 (0-35) U/L Alkaline Phosphatase 36 L (38-126) U/L Serum Total Protein 5.4 L (6.3-8.2) g/dL Albumin 2.7 L (3.5-5.0) g/dL PTH Intact Whole Molec 22 (15-65) pg/mL Radiology Exams: Radiology Procedures Category Date Time Status CHEST 1 VIEW (PORTABLE) Urgent Exams 06/11/23 11:05 Completed Multi-Disciplinary Progress Notes: Multi-Disciplinary Progress Notes 06/11/23 13:57 Case Management Note by Ynes Ye FAMILY DISCUSSED GOING AHEAD WITH NH PLACEMENT-FAXED REFERRAL TO [facility]. AFTER TALKING WITH THEIR MEDIA RELATIONS COORDINATOR THEY DECIDED TO CONTINUE TO WAIT ON PLACEMENT AT THIS TIME. THEY WILL CONTINUE TO PROVIDE PATIENT WITH 24 HR CARE AT HOME WITH HELP OF FAMILY. THEY WERE GIVEN LIST OF SITTERS TO HELP WITH CARE IF NEEDED. WE ALSO AGAIN DISCUSSED HHC AND HOSPICE- THEY DECLINE BOTH AT THIS TIME. THEY DENY ANY EQUIPMENT NEEDS OR OTHER NEEDS AT THIS TIME. PATIENT TO DC WITH FAMILY AT TIME OF DC Initialized on 06/11/23 13:57 - END OF NOTE Assessment/Plan (1) Acute metabolic encephalopathy Current Visit: Yes Status: Acute Assessment & Plan: Patient is agitated and combative She is not safe for discharge from medical standpoint Confusion is secondary to Hypercalcemia and UTI Continue antibiotics and steroids. She needs IV fluids for hypercalcemia and acute kidney injury Unfortunately she has pulled out her IV's so we are unable to give needed IV medications Continue Geodon for combativeness Added Seroquel at bedtime Code(s): G93.41 - METABOLIC ENCEPHALOPATHY (2) Dementia Current Visit: Yes Status: Chronic Assessment & Plan: Supportive care Family is planning to take her home on discharge office manager executive assistant working with family Code(s): F03.90 - UNSP DEMENTIA, UNSP SEVERITY, WITHOUT BEH/PSYCH/MOOD/ANX (3) Hypertension Current Visit: Yes Status: Chronic Qualifiers: Hypertension type: primary hypertension Qualified Code(s): I10 - Essential (primary) hypertension Assessment & Plan: Continue home meds Code(s): I10 - ESSENTIAL (PRIMARY) HYPERTENSION (4) Hyponatremia Current Visit: Yes Status: Acute Assessment & Plan: Na is down slightly at 132. Recheck in am Code(s): E87.1 - HYPO-OSMOLALITY AND HYPONATREMIA (5) Acute kidney injury Current Visit: Yes Status: Acute Assessment & Plan: Renal function did improve Unfortunately we are unable to keep IV's in as she keeps pulling them out Staff and family encouraged to push fluids orally Code(s): N17.9 - ACUTE KIDNEY FAILURE, UNSPECIFIED (6) Hypercalcemia Current Visit: Yes Status: Acute Assessment & Plan: Calcium improved to 12.0. Continue steroids one more day We believe hypercalcemia was due to dehydration and large amount of oral calcium she was taking at home Code(s): E83.52 - HYPERCALCEMIA (7) Hypokalemia Current Visit: Yes Status: Acute Assessment & Plan: Resolved Code(s): E87.6 - HYPOKALEMIA (8) Urinary tract infection Current Visit: Yes Status: Acute Qualifiers: Urinary tract infection type: acute cystitis Hematuria presence: without hematuria Qualified Code(s): N30.00 - Acute cystitis without hematuria Assessment & Plan: Urine culture grew E Coli which is pansensitive. Oral Bactrim is ordered. Code(s): N39.0 - URINARY TRACT INFECTION, SITE NOT SPECIFIED Telemedicine Encounter - Telemedicine Encounter Telemedicine Encounter: The entirety of this encounter was performed via Telemedicine after consent obtained. Labs and imaging reviewed. Complex medical decision making. Binu Locke MD [facility]
[2023-06-11] MEDS: NICODERM CQ 14 MG TOP SCH (17:14)
[2023-06-11] MEDS: Seroquel 25 MG PO SCH (21:30)
[2023-06-12 06:09] LABS: Hematocrit 31.4 % (35-47); Hemoglobin 10.5 g/dL (12.0-16.0); Mean Corpuscular Hemoglobin 30.4 pg (26-32); Mean Corpuscular Hgb Concent. 33.4 g/dL (32-36); Mean Platelet Volume 11.2 fL (7.5-11.0); Platelet Count 240 x10^3/uL (150-450); Red Blood Count 3.45 x10^6/uL (4.1-5.4); Red Cell Distribution Width 13.2 % (11.5-14.0); White Blood Count 11.9 x10^3/uL (4.0-10.5)
[2023-06-12 06:27] LABS: ALBUMIN 2.8 g/dL (3.5-5.0); ANION GAP 6.8 MEQ/L (5-15); BILIRUBIN,TOTAL 0.3 mg/dL (0.2-1.3); Calcium 10.6 mg/dL (8.4-10.2); Creatinine 1 1.38 mg/dL (0.52-1.04); EST GLOMERULAR FILTRATION RATE 40.2 ML/MIN; MAGNESIUM 1.6 mg/dL (1.6-2.3); Potassium 3.9 mmol/L (3.5-5.1); Total Protein 5.6 g/dL (6.3-8.2)
[2023-06-12] MEDS: DELTASONE 20 MG PO SCH (10:40)
[2023-06-12] MEDS: ENOXAPARIN SODIUM SQ SCH (10:41)
[2023-06-12] MEDS: ECOTRIN 81 MG PO SCH (10:41)
[2023-06-12] MEDS: VITAMIN B-1 100 MG PO SCH (10:41)
[2023-06-12] MEDS: BACTRIM DS TABLET PO SCH ×2 (10:42→21:25)
[2023-06-12] MEDS: NORVASC 5 MG PO SCH (10:42)
--- NOTE | 2023-06-12 10:55 | PCM.NOTE ---
Date and Time: 06/12/23 1050 Subjective Assessment: Patient is much more awake and alert. She denies pain. No nausea or vomiting. No dyspnea or cough. No urinary complaints. - Review of Systems Constitutional: No Symptoms, No Fever, No Chills Eyes: No Symptoms Ears, Nose, & Throat: No Symptoms Respiratory: No Symptoms Cardiac: No Symptoms Abdominal/Gastrointestinal: No Symptoms Genitourinary Symptoms: No Symptoms Musculoskeletal: No Symptoms Skin: No Symptoms Neurological: No Symptoms Psychological: No Symptoms Endocrine: No Symptoms Hematologic/Lymphatic: No Symptoms Immunological/Allergic: No Symptoms All Other Systems: Reviewed and Negative Objective Exam General Appearance: no apparent distress Neurologic Exam: alert, oriented x 3, cooperative, basket turner II-XII nml as tested Skin Exam: normal color, warm, dry Wound Assessment: Skin/Wound Assessment Wound/Incision Assessment Start: 06/09/23 13:39 Text: Status: Active Freq: Q6H Protocol: Document 06/12/23 08:00 CLARK (Rec: 06/12/23 09:24 RB [id number]) Wound/Incision Assessment Sacrum Wound Assessment Shift Assessment Wound Stage Non Pressure Wound Drainage Amount None Drainage Odor None/Absent General Appearance Reddened Surrounding Tissue [place] Topical Solution/Irrigant Medicated Ointment Comment redness noted to sacrum, barrier ointment applied, pt weight shifted, skin blanches. no open areas noted-remains true Wound Photo Photo Taken No Eye Exam: PERRL, EOMI, eyes nml inspection Ears, Nose, Throat Exam: normal ENT inspection Neck Exam: normal inspection Lymphatic Exam: No adenopathy Respiratory Exam: normal breath sounds Cardiovascular Exam: regular rate/rhythm, normal heart sounds Gastrointestinal/Abdomen Exam: soft, normal bowel sounds, No tenderness, No mass Extremity Exam: normal inspection, normal range of motion Back Exam: normal inspection Pelvic Exam: deferred Rectal Exam: deferred OBJECTIVE DATA Vital Signs: Vital Signs - 24 hr Temp Pulse Resp BP Pulse Ox 06/12/23 08:00 97.5 F 74 16 119/86 96 06/12/23 04:00 97.7 F 56 L 16 119/56 96 06/12/23 00:00 97.4 F 57 L 16 129/59 96 06/11/23 19:13 97.8 F 71 18 120/56 93 L 06/11/23 16:00 97.5 F 73 16 127/54 90 L 06/11/23 11:53 97.4 F 62 16 138/66 90 L Pain Assessment - Last Documented Pain Intensity 0 Intake and Output: Intake & Output 06/09/23 06/10/23 06/11/23 06/12/23 11:59 11:59 11:59 11:59 Intake Total 3007 340 530 Balance 2437 340 530 Weight 64 kg 62.6 kg Lab Results: Lab Results-Last 24 Hours 06/10/23 06/12/23 06/12/23 Range/Units 04:45 05:16 05:16 WBC 11.9 H (4.0-10.5) x10^3/uL RBC 3.45 L (4.1-5.4) x10^6/uL Hgb 10.5 L (12.0-16.0) g/dL Hct 31.4 L (35-47) % MCV 91.0 (78-100) fL MCH 30.4 (26-32) pg MCHC 33.4 (32-36) g/dL RDW 13.2 (11.5-14.0) % Plt Count 240 (150-450) x10^3/uL MPV 11.2 H (7.5-11.0) fL Sodium 127 L (137-145) mmol/L Potassium 3.9 (3.5-5.1) mmol/L Chloride 100 (98-107) mmol/L Carbon Dioxide 25 (22-30) mmol/L Anion Gap 6.8 (5-15) MEQ/L BUN 22 H (7-17) mg/dL Creatinine 1.38 H (0.52-1.04) mg/dL Estimated GFR 40.2 ML/MIN Glucose 117 H (74-106) mg/dL Calcium 10.6 H (8.4-10.2) mg/dL Phosphorus 3.0 (2.5-4.5) mg/dL Magnesium 1.6 (1.6-2.3) mg/dL Total Bilirubin 0.30 (0.2-1.3) mg/dL AST 21 (14-36) U/L ALT 15 (0-35) U/L Alkaline Phosphatase 37 L (38-126) U/L Serum Total Protein 5.6 L (6.3-8.2) g/dL Albumin 2.8 L (3.5-5.0) g/dL PTH Intact Whole Molec 22 (15-65) pg/mL Radiology Exams: Radiology Procedures Category Date Time Status CHEST 1 VIEW (PORTABLE) Urgent Exams 06/11/23 11:05 Completed Multi-Disciplinary Progress Notes: Multi-Disciplinary Progress Notes 06/11/23 13:57 Case Management Note by Ynes Ye FAMILY DISCUSSED GOING AHEAD WITH NH PLACEMENT-FAXED REFERRAL TO [facility]. AFTER TALKING WITH THEIR SYSTEM OPERATOR THEY DECIDED TO CONTINUE TO WAIT ON PLACEMENT AT THIS TIME. THEY WILL CONTINUE TO PROVIDE PATIENT WITH 24 HR CARE AT HOME WITH HELP OF FAMILY. THEY WERE GIVEN LIST OF SITTERS TO HELP WITH CARE IF NEEDED. WE ALSO AGAIN DISCUSSED HHC AND HOSPICE- THEY DECLINE BOTH AT THIS TIME. THEY DENY ANY EQUIPMENT NEEDS OR OTHER NEEDS AT THIS TIME. PATIENT TO DC WITH FAMILY AT TIME OF DC Initialized on 06/11/23 13:57 - END OF NOTE Assessment/Plan (1) Acute metabolic encephalopathy Current Visit: Yes Status: Acute Code(s): G93.41 - METABOLIC ENCEPHALOPATHY (2) Dementia Current Visit: Yes Status: Chronic Code(s): F03.90 - UNSP DEMENTIA, UNSP SEVERITY, WITHOUT BEH/PSYCH/MOOD/ANX (3) Hypertension Current Visit: Yes Status: Chronic Qualifiers: Hypertension type: primary hypertension Qualified Code(s): I10 - Essential (primary) hypertension Code(s): I10 - ESSENTIAL (PRIMARY) HYPERTENSION (4) Hyponatremia Current Visit: Yes Status: Acute Code(s): E87.1 - HYPO-OSMOLALITY AND HYPONATREMIA (5) Acute kidney injury Current Visit: Yes Status: Acute Code(s): N17.9 - ACUTE KIDNEY FAILURE, UNSPECIFIED (6) Hypercalcemia Current Visit: Yes Status: Acute Code(s): E83.52 - HYPERCALCEMIA (7) Hypokalemia Current Visit: Yes Status: Acute Code(s): E87.6 - HYPOKALEMIA (8) Urinary tract infection Current Visit: Yes Status: Acute Qualifiers: Urinary tract infection type: acute cystitis Hematuria presence: without hematuria Qualified Code(s): N30.00 - Acute cystitis without hematuria Assessment & Plan: (1) Acute metabolic encephalopathy Current Visit: Yes Status: Acute Assessment & Plan: Mental status much improved Confusion was due to UTI and hypercalcemia Family planning to take patient home Code(s): G93.41 - METABOLIC ENCEPHALOPATHY (2) Dementia Current Visit: Yes Status: Chronic Assessment & Plan: Supportive care Family is planning to take her home on discharge manager application working with family Code(s): F03.90 - UNSP DEMENTIA, UNSP SEVERITY, WITHOUT BEH/PSYCH/MOOD/ANX (3) Hypertension Current Visit: Yes Status: Chronic Qualifiers: Hypertension type: primary hypertension Qualified Code(s): I10 - Essential (primary) hypertension Assessment & Plan: Continue home meds Code(s): I10 - ESSENTIAL (PRIMARY) HYPERTENSION (4) Hyponatremia Current Visit: Yes Status: Acute Assessment & Plan: Na dropped to 127 Will add salt tablets Code(s): E87.1 - HYPO-OSMOLALITY AND HYPONATREMIA (5) Acute kidney injury Current Visit: Yes Status: Acute Assessment & Plan: Renal function slightly worse today Try to increase fluid intake Code(s): N17.9 - ACUTE KIDNEY FAILURE, UNSPECIFIED (6) Hypercalcemia Current Visit: Yes Status: Acute Assessment & Plan: Calcium much improved at 10.6. Will stop steroids We believe hypercalcemia was due to dehydration and large amount of oral calcium she was taking at home Code(s): E83.52 - HYPERCALCEMIA (8) Urinary tract infection Current Visit: Yes Status: Acute Qualifiers: Urinary tract infection type: acute cystitis Hematuria presence: without hematuria Qualified Code(s): N30.00 - Acute cystitis without hematuria Assessment & Plan: Urine culture grew E Coli which is pansensitive. Continue oral Bactrim Code(s): N39.0 - URINARY TRACT INFECTION, SITE NOT SPECIFIED Telemedicine Encounter - Telemedicine Encounter Telemedicine Encounter: The entirety of this encounter was performed via Telemedicine after consent obtained. Labs and imaging reviewed. Complex medical decision making. Binu Locke MD [facility] Code(s): N39.0 - URINARY TRACT INFECTION, SITE NOT SPECIFIED Telemedicine Encounter - Telemedicine Encounter Telemedicine Encounter: The entirety of this encounter was performed via Telemedicine after consent obtained
[2023-06-12] MEDS: SODIUM CHLORIDE PO SCH ×2 (11:23→21:25)
[2023-06-12] MEDS: NICODERM CQ 14 MG TOP SCH (16:33)
[2023-06-12] MEDS: Seroquel 25 MG PO SCH (21:25)
[2023-06-13 04:56] LABS: Hematocrit 33.9 % (35-47); Hemoglobin 11.8 g/dL (12.0-16.0); Mean Cell Volume 89.7 fL (78-100); Mean Corpuscular Hemoglobin 31.2 pg (26-32); Mean Corpuscular Hgb Concent. 34.8 g/dL (32-36); Mean Platelet Volume 11.2 fL (7.5-11.0); Platelet Count 322 x10^3/uL (150-450); Red Blood Count 3.78 x10^6/uL (4.1-5.4); Red Cell Distribution Width 13.3 % (11.5-14.0); White Blood Count 19.1 x10^3/uL (4.0-10.5)
[2023-06-13 05:15] LABS: ANION GAP 10.1 MEQ/L (5-15); Calcium 9.9 mg/dL (8.4-10.2); Creatinine 1 1.49 mg/dL (0.52-1.04); EST GLOMERULAR FILTRATION RATE 36.6 ML/MIN; Potassium 3.5 mmol/L (3.5-5.1)
[2023-06-13] MEDS ORDERED: Sodium Chloride 0.9% 1000 ML 1,000 ML IV STA (08:55)
[2023-06-13] MEDS: NORVASC 5 MG PO SCH (09:12)
[2023-06-13] MEDS: Docusate Sodium 100 MG PO SCH ×2 (09:12→21:38)
[2023-06-13] MEDS: ECOTRIN 81 MG PO SCH (09:12)
[2023-06-13] MEDS: BACTRIM DS TABLET PO SCH ×2 (09:12→21:37)
[2023-06-13] MEDS: SODIUM CHLORIDE PO SCH ×3 (09:12→21:38)
[2023-06-13] MEDS: VITAMIN B-1 100 MG PO SCH (09:12)
[2023-06-13] MEDS: ENOXAPARIN SODIUM SQ SCH (09:13)
[2023-06-13] MEDS: NICODERM CQ 14 MG TOP SCH (16:05)
--- NOTE | 2023-06-13 16:20 | PCM.NOTE ---
Date and Time: 06/13/23 1615 Subjective Assessment: Patient has poor memory but is no longer combative and agitated. She is oriented to person only. She denies pain. No nausea or vomiting. No dyspnea or cough. No other symptoms. - Review of Systems Constitutional: No Symptoms Eyes: No Symptoms Ears, Nose, & Throat: No Symptoms Respiratory: No Symptoms, No Cough, No Short Of Breath Cardiac: No Symptoms Abdominal/Gastrointestinal: No Symptoms, No Abdominal Pain, No Nausea, No Vomiting Genitourinary Symptoms: No Symptoms, No Dysuria, No Frequency Musculoskeletal: No Symptoms Skin: No Symptoms Neurological: No Symptoms Psychological: No Symptoms Endocrine: No Symptoms Hematologic/Lymphatic: No Symptoms Immunological/Allergic: No Symptoms All Other Systems: Unable due to dementia Objective Exam General Appearance: no apparent distress Neurologic Exam: alert, cooperative, case reviewer II-XII nml as tested Skin Exam: normal color, warm, dry Wound Assessment: Skin/Wound Assessment Wound/Incision Assessment Start: 06/09/23 13:39 Text: Status: Active Freq: Q6H Protocol: Document 06/13/23 14:00 AR (Rec: 06/13/23 14:55 AR [id number]) Wound/Incision Assessment Sacrum Comment reddened but blanchable, barrier cream applied prn Wound Photo Photo Taken No Eye Exam: PERRL, EOMI, eyes nml inspection Ears, Nose, Throat Exam: normal ENT inspection Neck Exam: normal inspection, non-tender, supple Lymphatic Exam: No adenopathy Respiratory Exam: normal breath sounds Cardiovascular Exam: regular rate/rhythm, normal heart sounds Gastrointestinal/Abdomen Exam: soft, normal bowel sounds, No tenderness, No distention, No mass Extremity Exam: normal inspection Back Exam: normal inspection Pelvic Exam: deferred Rectal Exam: deferred OBJECTIVE DATA Vital Signs: Vital Signs - 24 hr Temp Pulse Resp BP Pulse Ox 06/13/23 11:58 97.7 F 90 16 130/66 92 L 06/13/23 07:37 97.8 F 80 20 120/58 95 06/13/23 04:00 97.8 F 80 20 120/58 95 06/13/23 00:00 97.2 F 86 20 118/63 94 L 06/12/23 19:57 97.1 F 84 20 114/56 93 L Pain Assessment - Last Documented Pain Intensity 0 Intake and Output: Intake & Output 06/11/23 06/12/23 06/13/23 06/14/23 11:59 11:59 11:59 11:59 Intake Total 865 349 0773 360 Balance 614 426 6339 360 Weight 69.4 kg 69.4 kg Lab Results: Lab Results-Last 24 Hours 06/13/23 06/13/23 Range/Units 04:25 04:25 WBC 19.1 H (4.0-10.5) x10^3/uL RBC 3.78 L (4.1-5.4) x10^6/uL Hgb 11.8 L (12.0-16.0) g/dL Hct 33.9 L (35-47) % MCV 89.7 (78-100) fL MCH 31.2 (26-32) pg MCHC 34.8 (32-36) g/dL RDW 13.3 (11.5-14.0) % Plt Count 322 D (150-450) x10^3/uL MPV 11.2 H (7.5-11.0) fL Sodium 124 L (137-145) mmol/L Potassium 3.5 (3.5-5.1) mmol/L Chloride 97 L (98-107) mmol/L Carbon Dioxide 21 L (22-30) mmol/L Anion Gap 10.1 (5-15) MEQ/L BUN 26 H (7-17) mg/dL Creatinine 1.49 H (0.52-1.04) mg/dL Estimated GFR 36.6 ML/MIN Glucose 100 (74-106) mg/dL Calcium 9.9 (8.4-10.2) mg/dL Assessment/Plan (1) Acute metabolic encephalopathy Current Visit: Yes Status: Acute Code(s): G93.41 - METABOLIC ENCEPHALOPATHY (2) Dementia Current Visit: Yes Status: Chronic Code(s): F03.90 - UNSP DEMENTIA, UNSP SEVERITY, WITHOUT BEH/PSYCH/MOOD/ANX (3) Hypertension Current Visit: Yes Status: Chronic Qualifiers: Hypertension type: primary hypertension Qualified Code(s): I10 - Essential (primary) hypertension Code(s): I10 - ESSENTIAL (PRIMARY) HYPERTENSION (4) Hyponatremia Current Visit: Yes Status: Acute Code(s): E87.1 - HYPO-OSMOLALITY AND HYPONATREMIA (5) Acute kidney injury Current Visit: Yes Status: Acute Code(s): N17.9 - ACUTE KIDNEY FAILURE, UNSPECIFIED (6) Hypercalcemia Current Visit: Yes Status: Acute Code(s): E83.52 - HYPERCALCEMIA (7) Hypokalemia Current Visit: Yes Status: Acute Code(s): E87.6 - HYPOKALEMIA (8) Urinary tract infection Current Visit: Yes Status: Acute Qualifiers: Urinary tract infection type: acute cystitis Hematuria presence: without hematuria Qualified Code(s): N30.00 - Acute cystitis without hematuria Assessment & Plan: (1) Acute metabolic encephalopathy Current Visit: Yes Status: Acute Assessment & Plan: Mental status continues to improve Son says she is back to baseline Family planning to take patient home Code(s): G93.41 - METABOLIC ENCEPHALOPATHY (2) Dementia Current Visit: Yes Status: Chronic Assessment & Plan: Supportive care Family is planning to take her home on discharge manager camp working with family Code(s): F03.90 - UNSP DEMENTIA, UNSP SEVERITY, WITHOUT BEH/PSYCH/MOOD/ANX (3) Hypertension Current Visit: Yes Status: Chronic Qualifiers: Hypertension type: primary hypertension Qualified Code(s): I10 - Essential (primary) hypertension Assessment & Plan: Continue home meds Code(s): I10 - ESSENTIAL (PRIMARY) HYPERTENSION (4) Hyponatremia Current Visit: Yes Status: Acute Assessment & Plan: Na dropped to 124 Increased salt tablets Code(s): E87.1 - HYPO-OSMOLALITY AND HYPONATREMIA (5) Acute kidney injury Current Visit: Yes Status: Acute Assessment & Plan: Renal function much improved Home in am if sodium improved Code(s): N17.9 - ACUTE KIDNEY FAILURE, UNSPECIFIED (6) Hypercalcemia Current Visit: Yes Status: Acute Assessment & Plan: Calcium much improved Stop steroids We believe hypercalcemia was due to dehydration and large amount of oral calcium she was taking at home Code(s): E83.52 - HYPERCALCEMIA (8) Urinary tract infection Current Visit: Yes Status: Acute Qualifiers: Urinary tract infection type: acute cystitis Hematuria presence: without hematuria Qualified Code(s): N30.00 - Acute cystitis without hematuria Assessment & Plan: Urine culture grew E Coli which is pansensitive. Continue oral Bactrim Code(s): N39.0 - URINARY TRACT INFECTION, SITE NOT SPECIFIED Telemedicine Encounter - Telemedicine Encounter Telemedicine Encounter: The entirety of this encounter was performed via Telemedicine after consent obtained. Labs and imaging reviewed. Complex medical decision making. Binu Locke MD [facility] Code(s): N39.0 - URINARY TRACT INFECTION, SITE NOT SPECIFIED Telemedicine Encounter - Telemedicine Encounter Telemedicine Encounter: The entirety of this encounter was performed via Telemedicine after consent obtained.
[2023-06-13 20:09] VITALS: TEMP 97.7
[2023-06-13] MEDS: Seroquel 25 MG PO SCH (21:38)
[2023-06-14 06:05] LABS: Hematocrit 28.3 % (35-47); Hemoglobin 9.5 g/dL (12.0-16.0); Mean Cell Volume 91.6 fL (78-100); Mean Corpuscular Hemoglobin 30.7 pg (26-32); Mean Corpuscular Hgb Concent. 33.6 g/dL (32-36); Mean Platelet Volume 11.1 fL (7.5-11.0); Platelet Count 215 x10^3/uL (150-450); Red Blood Count 3.09 x10^6/uL (4.1-5.4); Red Cell Distribution Width 13.5 % (11.5-14.0); White Blood Count 12.5 x10^3/uL (4.0-10.5)
[2023-06-14 06:20] LABS: ANION GAP 6.2 MEQ/L (5-15); Calcium 9.2 mg/dL (8.4-10.2); Creatinine 1 1.24 mg/dL (0.52-1.04); EST GLOMERULAR FILTRATION RATE 45.7 ML/MIN; Potassium 3.3 mmol/L (3.5-5.1)
[2023-06-14 07:10] VITALS: RESP 18
[2023-06-14] MEDS: NORVASC 5 MG PO SCH (08:19)
[2023-06-14] MEDS: ENOXAPARIN SODIUM SQ SCH (08:19)
[2023-06-14] MEDS: BACTRIM DS TABLET PO SCH (08:19)
[2023-06-14] MEDS: ECOTRIN 81 MG PO SCH (08:20)
[2023-06-14] MEDS: Docusate Sodium 100 MG PO SCH (08:20)
[2023-06-14] MEDS: VITAMIN B-1 100 MG PO SCH (08:20)
[2023-06-14] MEDS: SODIUM CHLORIDE PO SCH (08:20)
--- NOTE | 2023-06-14 11:44 | PCM.DS ---
Discharge Summary Date of Admission: 06/09/23 14:30 Date of Discharge: 06/14/2023 Admitting Physician: QUYEN SHERIDAN MD Primary Care Provider: HAILEY BARAHONA NP Allergies Allergies No Known Drug Allergies Allergy (Verified 06/09/23 10:28) Hospital Summary - Hospital Course Hospital Course: This patient was admitted with acute metabolic encephalopathy due to hypercalcemia and UTI. The patient does have underlying dementia. Cultures of urine were obtained and she was started on IV Rocephin. She received full course of treatment for UTI. She had acute kidney injury on admission. She was treated with IV fluids and Cr normalized. Her hypercalcemia was due to dehydration plus she was taking a large amount of calcium (Tums) at home. She was treated with IV fluids and steroids and serum calcium returned to normal. Her mental status has returned to baseline. The family is planning to take her home on discharge. The patient is much improved and will be dismissed on 06/14/23. - Vitals & Intake/Output Vital Signs: Vital Signs Temperature 97.7 F 06/14/23 07:10 Pulse Rate 70 06/14/23 07:10 Respiratory Rate 18 06/14/23 07:10 Blood Pressure 121/60 06/14/23 07:10 O2 Sat by Pulse Oximetry 94 L 06/14/23 07:10 Intake & Output: Intake & Output 06/11/23 06/12/23 06/13/23 06/14/23 11:59 11:59 11:59 11:59 Intake Total 728 469 4789 1080 Balance 260 086 1554 1080 Weight 69.4 kg 69.4 kg 68.9 kg - Lab Result Diagrams: 06/14/23 05:25 06/14/23 05:25 Lab Results-Last 24 Hrs: Lab Results-Last 24 Hours 06/14/23 06/14/23 Range/Units 05:25 05:25 WBC 12.5 H (4.0-10.5) x10^3/uL RBC 3.09 L (4.1-5.4) x10^6/uL Hgb 9.5 L (12.0-16.0) g/dL Hct 28.3 L (35-47) % MCV 91.6 (78-100) fL MCH 30.7 (26-32) pg MCHC 33.6 (32-36) g/dL RDW 13.5 (11.5-14.0) % Plt Count 215 (150-450) x10^3/uL MPV 11.1 H (7.5-11.0) fL Sodium 130 L (137-145) mmol/L Potassium 3.3 L (3.5-5.1) mmol/L Chloride 104 (98-107) mmol/L Carbon Dioxide 22 (22-30) mmol/L Anion Gap 6.2 (5-15) MEQ/L BUN 16 (7-17) mg/dL Creatinine 1.24 H (0.52-1.04) mg/dL Estimated GFR 45.7 ML/MIN Glucose 72 L (74-106) mg/dL Calcium 9.2 (8.4-10.2) mg/dL Micro Results-Entire Visit: Microbiology 06/09/23 12:58 Blood Culture - Final Blood 06/09/23 11:30 Blood Culture - Final Blood 06/09/23 11:24 Urine Culture - Final Urine, Catheterized Escherichia Coli - Procedures and Test Procedures and Tests throughout Hospitalization: Therapy Orders & Screens 06/09/23 14:30 PT Eval & Treat (MD Order) ONCE Reason for Eval:: WEakness Diagnosis: Confusion, hypokalemia, UTI OT Eval and Treat (MD Order) ONCE Comment: Physician Instructions: Reason For Exam: Diagnosis: Confusion, hypokalemia, UTI 06/10/23 05:00 EKG REPEAT IN AM Comment: Diagnosis: Confusion, hypokalemia, UTI Discharge Exam General Appearance: no apparent distress Neurologic Exam: alert, cooperative, adviser sales II-XII nml as tested Eye Exam: PERRL, EOMI, eyes nml inspection Ears, Nose, Throat Exam: normal ENT inspection Neck Exam: normal inspection, non-tender, supple, full range of motion Respiratory Exam: normal breath sounds Cardiovascular Exam: regular rate/rhythm, normal heart sounds, normal peripheral pulses Gastrointestinal/Abdomen Exam: soft, normal bowel sounds, No tenderness, No mass Pelvic Exam: deferred Rectal Exam: deferred Back Exam: normal inspection Extremity Exam: normal inspection Skin Exam: normal color, warm, dry Wound Assessment: Skin/Wound Assessment Wound/Incision Assessment Start: 06/09/23 13:39 Text: Status: Active Freq: Q6H Protocol: Document 06/14/23 07:45 FRANCIA (Rec: 06/14/23 07:46 FRANCIA [id number]) Wound/Incision Assessment Sacrum Wound Assessment Shift Assessment Dressing Status Dry & Intact Comment reddened but blanchable, barrier cream applied prn Wound Photo Photo Taken No Lymphatic Exam: No adenopathy Final Diagnosis/Problem List - Final Discharge Diagnosis/Problem (1) Acute metabolic encephalopathy Current Visit: Yes Status: Acute Code(s): G93.41 - METABOLIC ENCEPHALOPATHY (2) Dementia Current Visit: Yes Status: Chronic Code(s): F03.90 - UNSP DEMENTIA, UNSP SEVERITY, WITHOUT BEH/PSYCH/MOOD/ANX (3) Hypertension Current Visit: Yes Status: Chronic Code(s): I10 - ESSENTIAL (PRIMARY) HYPERTENSION (4) Hyponatremia Current Visit: Yes Status: Acute Code(s): E87.1 - HYPO-OSMOLALITY AND HY PONATREMIA (5) Acute kidney injury Current Visit: Yes Status: Acute Code(s): N17.9 - ACUTE KIDNEY FAILURE, UNSPECIFIED (6) Hypercalcemia Current Visit: Yes Status: Acute Code(s): E83.52 - HYPERCALCEMIA (7) Hypokalemia Current Visit: Yes Status: Acute Code(s): E87.6 - HYPOKALEMIA (8) Urinary tract infection Current Visit: Yes Status: Acute Code(s): N39.0 - URINARY TRACT INFECTION, SITE NOT SPECIFIED Telemedicine Encounter - Telemedicine Encounter Telemedicine Encounter: The entirety of this encounter was performed via Telemedicine" - Discharge Disposition: Home, Self-Care Condition: Stable Prescriptions: New Smz/Tmp Ds Tablet [Bactrim Ds Tablet] 1 tab PO BID 5 Days tablet Nicotine 14 mg [Nicoderm Cq 14 mg] 14 mg TOP Q24H #30 patch Acetaminophen 325 mg [Tylenol 325 mg] 650 mg PO Q4H PRN PRN tablet PRN Reason: Pain, Fever, Headache Continue Cetirizine HCl [Zyrtec] 1 tab PO DAILY Aspirin EC 81 mg [Ecotrin 81 mg] 1 tab PO DAILY Ferrous Sulfate 1 tab PO DAILY Amlodipine Besylate 5 mg [Norvasc 5 mg] 10 mg PO DAILY Alendronate Sodium 70 mg [Fosamax 70 MG] 1 tab PO WEEKLY Melatonin 1 tab PO HS Cyanocobalamin (Vitamin B-12) [Vitamin B12] 1 tab PO WEEKLY Cholecalciferol (Vitamin D3) [Vitamin D3] 1 cap PO DAILY Multivit-Min/Iron/Folic/Lutein [Centrum Silver Women Tablet] 1 tab PO DAILY Thiamine HCl 100 mg [Vitamin B-1 100 mg] 1 tab PO DAILY Discontinued Celecoxib 100 mg [celeBREX 100 MG] 200 mg PO BID Enalapril Maleate 10 mg [Vasotec 10 MG] 20 mg PO BID Calcium Carbonate [Tums] 500 mg PO BID Instructions: Urinary Tract Infection, Adult (DC), Preventing falls in adults Follow up with: HAILEY BARAHONA [employer]ITTER [Primary Care Provider] - Call for Appointment
[2023-06-14 11:48] VITALS: BP 118/67; PULSE 85; O2SAT 93
== END 2023-06-14 12:05 | disposition home or self-care (01) | DRG 71 ==
LOC: ED 09:55 → MED SURG 12:58 → OBSVTOIN 14:30
PROVIDERS: ADMIT Internal Medicine; ATTEND Internal Medicine
DX: G93.41 Metabolic encephalopathy (principal); E87.1 Hypo-osmolality and hyponatremia; N17.9 Acute kidney failure, unspecified; N39.0 Urinary tract infection, site not specified; F03.90 Unspecified dementia, unspecified severity, without behavioral disturbance, psychotic disturbance, mood disturbance, and anxiety; I10 Essential (primary) hypertension; E83.52 Hypercalcemia; E87.6 Hypokalemia; K59.00 Constipation, unspecified; R32 Unspecified urinary incontinence; D64.9 Anemia, unspecified; S30.91XA Unspecified superficial injury of lower back and pelvis, initial encounter; Z79.899 Other long term (current) drug therapy; Z72.0 Tobacco use; Z20.828 Contact with and (suspected) exposure to other viral communicable diseases
CPT/HCPCS: 0241U; 36000; 36415; 70450; 71045; 80048; 80053; 81001; 82330; 83735; 83970; 84100; 84132; 84134; 85025; 85027; 87040; 87077; 87086; 87186; 93005; 96360; 96365; 96366; 96367; 97161; 97165; 99285; P9612; Q3014; J0696; J1650; J2920; J3480; J3486; A9270-GY; J3475